=== PATIENT | female | born 1995 | race Caucasian/White ===

== ENCOUNTER 2023-08-11 14:01 | Emergency (ER) | payer MEDICAID, OTHER ==
[~2023-08-11] VITALS: Ht 157.5 cm; Wt 70.0 kg
[2023-08-11 14:04] VITALS: O2SAT 100
[2023-08-11] MEDS: ACETAMINOPHEN 325MG TABLET PO ONE (15:17)
[2023-08-11] MEDS: SODIUM CHLORIDE 0.9% 1,000 ML IV ONE (15:57)
[2023-08-11] MEDS: KETOROLAC 30MG/ML VIAL IV STA (15:57)
[2023-08-11 16:09] LABS: BASOPHILS % 0.3 % (0.0-2.0); EOSINOPHILS % 5.3 % (0.0-5.0); HEMATOCRIT. 37.2 % (36.0-48.0); HEMOGLOBIN. 12.6 g/dL (12.0-16.0); LYMPHOCYTES % 23.1 % (20.0-50.0); MEAN CORPUSCULAR HEMOGLOBIN 27.9 pg (28.0-32.0); MEAN CORPUSCULAR HGB CONC 33.8 g/dL (31.0-37.0); MEAN CORPUSCULAR VOLUME 82.7 fL (81.0-99.0); MEAN PLATELET VOLUME 9.4 fl (7.4-10.4); MONOCYTES % 5.5 % (2.0-8.0); NEUTROPHILS % 65.8 % (40.0-76.0); PLATELET 262 x1000/uL (130-400); RED CELL DISTRIBUTION WIDTH 14.6 % (11.6-14.6)
[2023-08-11 16:17] LABS: CHLORIDE 105 mEq/L (98-107); POTASSIUM 3.9 mEq/L (3.5-5.1); SODIUM 138 mEq/L (136-145)
[2023-08-11 16:18] LABS: CARBON DIOXIDE 27 mEq/L (21-32)
[2023-08-11 16:19] LABS: CALCIUM 9.3 mg/dL (8.7-10.4)
[2023-08-11 16:23] LABS: CREATININE 0.6 mg/dL (0.6-1.0); GLUCOSE 68 mg/dL (70-105); UREA NITROGEN BLOOD 12 mg/dL (9-23)
[2023-08-11 16:26] LABS: ALANINE AMINOTRANSFERASE 25 IU/L (10-49); ALBUMIN 4.3 g/dL (3.2-4.8); ASPARTATE AMINOTRANSFERASE 20 IU/L (<34); BILIRUBIN TOTAL 0.2 mg/dL (0.1-1.0); PROTEIN TOTAL 6.9 g/dL (6.0-8.3)
[2023-08-11 16:35] LABS: HCG SCREEN NEGATIVE
[2023-08-11 16:39] LABS: BILIRUBIN DIRECT < 0.1 mg/dL (<=3.0)
[2023-08-11] MEDS ORDERED: ACET325T52 MT (16:44)
[2023-08-11 17:23] VITALS: BP 115/76; PULSE 78; RESP 18; TEMP 98.7
[2023-08-11] MEDS ORDERED: IOHEXOL-350 100 ML BOTTLE ONE (17:42)
== END 2023-08-11 17:24 | disposition home or self-care (01) ==
LOC: ER 14:01
DX: R10.9 Unspecified abdominal pain (principal); R51.9 Headache, unspecified
CPT/HCPCS: 99285; 70450; 96374; 96361; 80076; 80048; 81025; 82962; 84703; 83690; 85025; 36415; 73080; 74177; Q9967; J1885; J7030